=== PATIENT | female | born 1995 | race Caucasian/White ===

== ENCOUNTER → 2018-06-15 | Day surgery (SDC) | payer BC ==
[~2018-06-15] MED LIST: DEXILANT30 MG; DONNATAL/LIDOCAINE/MAALOX 30 ML SUSP PO ONE; FENTANYL CITRATE/PF 100MCG/2 ML INJ ONE; LIDOCAINE HCL 2% LOCAL INJ 5 ML SDV VIAL INJ ONE; MIDAZOLAM HCL 2 MG/2 ML VIAL ONE; PROPOFOL IV EMULSION 10 MG/ML 50 ML VIAL ONE; VIENVA PO; ZYRTEC10 MG
[2018-06-15 17:15] VITALS: BP 108/66
--- NOTE | 2018-06-15 20:47 | Operative Report ---
DATE OF PROCEDURE: June 15, 2018 REFERRING PHYSICIAN: Dr. Katheryn Ontiveros from [facility]. PROCEDURE PERFORMED: Esophagogastroduodenoscopy with biopsies. INDICATIONS FOR EGD: Upper abdominal pain, nausea. MEDICATION: Patient was done under MAC. Please see anesthesiologist's note. PROCEDURE: With the patient in left lateral decubitus position, a flexible fiberoptic Olympus gastroscope was introduced into the esophagus under direct visualization without any difficulty. There was some patchy erythema noted in distal esophagus. The scope was then advanced with ease into the stomach, and mucosa overlying the antrum and the body revealed some patchy erythema and low-grade edema, and biopsies were obtained. Multiple minute ulcers up to 4 mm in size were noted in the antrum without active bleeding or stigmata of recent hemorrhage, and biopsies were obtained. The pylorus was of normal contour and shape and was intubated with ease, and the scope was advanced all the way to the 2nd portion of the duodenum. Biopsies were obtained from the proximal 2nd portion and the duodenal bulb to rule out sprue. The scope was then withdrawn back into the stomach and retroflexed, and the mucosa overlying the fundus and the cardia appeared to be within normal limits. The scope was then straightened out. It was subsequently withdrawn. Patient tolerated the procedure well. IMPRESSION 1. Distal esophagitis. 2. Gastritis, biopsied. Biopsies obtained. 3. Gastric ulcers, antrum, up to approximately 4 mm in size. Biopsies obtained and sent to stain for Helicobacter pylori. PLAN: Follow up histology. Initiate Protonix 40 mg 1 p.o. q.a.m. a.c. Job#: [id number] LPA cc:KATHERYN ONTIVEROS MD
--- OUTSIDE RECORDS SUMMARY | 2018-06-18 09:22 | XMS REPORT | Continuity of Care Document ---
Author Author [facility] Interface Address Unknown Phone Unavailable Problems Problem Status Onset Date Classification Date Reported Comments Source Acute maxillary sinusitis 05/29/2018 Diagnosis 05/29/2018 [facility] Candidiasis of mouth 04/26/2018 Diagnosis 04/26/2018 [facility] Fever 04/14/2018 Diagnosis 04/26/2018 [facility] Mild dehydration 04/14/2018 Diagnosis 04/26/2018 [facility] On examination - pulse rate tachycardia 04/14/2018 Diagnosis 04/26/2018 [facility] Neck pain 04/14/2018 Diagnosis 04/26/2018 [facility] Streptococcal sore throat 04/14/2018 Diagnosis 04/26/2018 [facility] Influenza-like illness 04/14/2018 Diagnosis 04/26/2018 [facility] Body mass index 25-29 - overweight 02/12/2018 Diagnosis 02/12/2018 [facility] On examination - fluid -middle ear 02/12/2018 Diagnosis 02/12/2018 [facility] Viral sinusitis 02/12/2018 Diagnosis 02/12/2018 [facility] Acute sinusitis 11/16/2017 Diagnosis 11/16/2017 [facility] Eustachian tube disorder 02/16/2017 Diagnosis 02/16/2017 [facility] Acute pharyngitis 02/16/2017 Diagnosis 02/16/2017 [facility] Generalized aches and pains 02/16/2017 Diagnosis 02/16/2017 [facility] Urinary tract infectious disease 06/07/2016 Diagnosis 06/07/2016 [facility] Urinary Tract Infectious Disease Problem 11/16/2017 [facility] Medications Medication Details Route Status Patient Instructions Ordering Provider Order Date Source Azelastine hydrochloride 0.137 MG/ACTUAT Metered Dose Nasal [place] azelastine 137 mcg (0.1 %) nasal spray aerosol [place] 2 sprays twice a day by intranasal route as directed for 5 days. Active [facility] Prednisone 20 MG Oral Tablet prednisone 20 mg tablet Take 1 tablet every day by oral route with meals for 5 days. Active [facility] Vienva 0.1 mg-20 mcg tablet Vienva 0.1 mg-20 mcg tablet Active [facility] Azithromycin 250 MG Oral Tablet Zithromax Z-Urbano 250 mg tablet TAKE 2 TABLETS (500 MG) BY ORAL ROUTE ONCE DAILY FOR 1 DAY THEN 1 TABLET (250 MG) BY ORAL ROUTE ONCE DAILY FOR 4 DAYS Active [facility] Amoxicillin 875 MG Oral Tablet amoxicillin 875 mg tablet Take 1 tablet every 12 hours by oral route for 10 days. Active [facility] Cefuroxime 250 MG Oral Tablet cefuroxime axetil 250 mg tablet Active [facility] NITROFURANTOIN, MACROCRYSTALS 25 MG / Nitrofurantoin, Monohydrate 75 MG Oral Capsule [Macrobid] Macrobid 100 mg capsule Take 1 capsule every 12 hours by oral route for 7 days. Active [facility] Orsythia 0.1 mg-20 mcg tablet Orsythia 0.1 mg-20 mcg tablet Active [facility] Phenazopyridine hydrochloride 200 MG Oral Tablet phenazopyridine 200 mg tablet Take 1 tablet 3 times a day by oral route as needed. Active [facility] Sulfamethoxazole 800 MG / Trimethoprim 160 MG Oral Tablet sulfamethoxazole 800 mg-trimethoprim 160 mg tablet Active [facility] doxycycline hyclate 100 MG Oral Tablet doxycycline hyclate 100 mg tablet Take 1 tablet twice a day by oral route after meals for 7 days. Active [facility] Amoxicillin 875 MG / Clavulanate 125 MG Oral Tablet amoxicillin 875 mg-potassium clavulanate 125 mg tablet Take 1 tablet every 12 hours by oral route for 5 days. Active [facility] Fluticasone propionate 0.05 MG/ACTUAT Metered Dose Nasal [place] fluticasone 50 mcg/actuation nasal spray,suspension [place] 1 spray every day by intranasal route. Active [facility] Nystatin 499210 UNT/ML Oral Suspension nystatin 100,000 unit/mL oral suspension Gargles and spit 5ml four times a day x 7days. Active [facility] Medrol (Urbano) 4 mg tablets in a dose pack Medrol ([place]) 4 mg tablets in a dose pack Take as directed on package Active [facility] Allergies, Adverse Reactions, Alerts Substance Category Reaction Severity Reaction type Status Date Reported Comments Source Immunizations Immunization Date Given Site Status Last Updated Comments Source Tdap 11/24/2013 completed [facility] Results Order Name Results Value Reference Range Date Interpretation Comments Source Influenza A negative 05/29/2018 [facility] Influenza B negative 05/29/2018 [facility] RESULT negative 04/26/2018 [facility] RESULT positive 04/26/2018 [facility] SWAB LOCATION Left and Right tonsillar pillars 04/26/2018 [facility] Influenza A negative 04/14/2018 [facility] Influenza B negative 04/14/2018 [facility] RESULT negative 04/14/2018 [facility] RESULT positive 04/14/2018 [facility] SWAB LOCATION Left and Right tonsillar pillars 04/14/2018 [facility] Influenza A negative 02/12/2018 [facility] Influenza B negative 02/12/2018 [facility] RESULT negative 11/16/2017 [facility] SWAB LOCATION Left and Right tonsillar pillars 11/16/2017 [facility] Influenza A negative 02/16/2017 [facility] Influenza B negative 02/16/2017 [facility] RESULT negative 02/16/2017 [facility] SWAB LOCATION Left and Right tonsillar pillars 02/16/2017 [facility] Urinalysis macro (dipstick) panel - Urine COLOR : Yellow 06/07/2016 [facility] Urinalysis macro (dipstick) panel - Urine CLARITY : Cloudy 06/07/2016 [facility] Urinalysis macro (dipstick) panel - Urine LEUKOCYTES : Trace 06/07/2016 [facility] Urinalysis macro (dipstick) panel - Urine NITRITES : Negative 06/07/2016 [facility] Urinalysis macro (dipstick) panel - Urine UROBILINOGEN : Normal 06/07/2016 [facility] Urinalysis macro (dipstick) panel - Urine PROTEIN : Negative 06/07/2016 [facility] Urinalysis macro (dipstick) panel - Urine pH : 5.0 06/07/2016 [facility] Urinalysis macro (dipstick) panel - Urine BLOOD : Negative 06/07/2016 [facility] Urinalysis macro (dipstick) panel - Urine SPECIFIC GRAVITY : 1.010 06/07/2016 [facility] Urinalysis macro (dipstick) panel - Urine KETONES : Negative 06/07/2016 [facility] Urinalysis macro (dipstick) panel - Urine BILIRUBIN : Negative 06/07/2016 [facility] Urinalysis macro (dipstick) panel - Urine GLUCOSE Negative 06/07/2016 [facility] Vital Signs Vital Sign Value Date Comments Source Diastolic (mm Hg) 76 05/29/2018 [facility] Height 65 05/29/2018 [facility] Systolic (mm Hg) 112 05/29/2018 [facility] Weight 146 05/29/2018 [facility] Diastolic (mm Hg) 74 04/26/2018 [facility] Height 65 04/26/2018 [facility] Systolic (mm Hg) 112 04/26/2018 [facility] Weight 145 04/26/2018 [facility] Diastolic (mm Hg) 84 04/14/2018 [facility] Height 65 04/14/2018 [facility] Systolic (mm Hg) 122 04/14/2018 [facility] Weight 145 04/14/2018 [facility] Diastolic (mm Hg) 72 02/12/2018 [facility] Height 65 02/12/2018 [facility] Systolic (mm Hg) 114 02/12/2018 [facility] Weight 150 02/12/2018 [facility] Diastolic (mm Hg) 60 11/16/2017 [facility] Height 65 11/16/2017 [facility] Systolic (mm Hg) 106 11/16/2017 [facility] Weight 143 11/16/2017 [facility] Diastolic (mm Hg) 70 02/16/2017 [facility] Height 65 02/16/2017 [facility] Systolic (mm Hg) 118 02/16/2017 [facility] Weight 134 02/16/2017 [facility] Diastolic (mm Hg) 62 06/07/2016 [facility] Height 65 06/07/2016 [facility] Systolic (mm Hg) 102 06/07/2016 [facility] Weight 129 06/07/2016 [facility] Encounters Location Location Details Encounter Type Encounter Number Reason For Visit Attending Provider ADM Date DC Date Status Source [place] - [facility] - [id number] Kelsey Carreon, CUSTOMER SERVICES SUPERVISOR: [address] [place] [address], Ph. [id number] Kelsey Carreon 06/07/2016 [facility] [place] [facility] - [id number] Brisa Lou, CUSTOMER SERVICES SUPERVISOR: [address] [address], Ph. [id number] Brisa Lou 02/16/2017 [facility] [place] [facility] - [id number] Leonor Rubin, CUSTOMER SERVICES SUPERVISOR-C: [address] [place] [address], Ph. [id number] Leonor Rubin 11/16/2017 [facility] [place] [facility] - [id number] Brisa Lou, CUSTOMER SERVICES SUPERVISOR: [address] [address], Ph. [id number] Brisa Lou 02/12/2018 [facility] [place] [facility] - [id number] Marielle Granger, MOTORCYCLE REPAIRER-C: [facility] [facility] [address], Ph. [id number] Marielle Granger 04/14/2018 [facility] [place] [facility] - [id number] Marielle Granger, MOTORCYCLE REPAIRER-C: [address] [address], Ph. [id number] Marielle Granger 04/14/2018 [facility] [place] [facility] - [id number] Brisa Lou, CUSTOMER SERVICES SUPERVISOR: [address] [place] [address] [place] [address], Ph. [id number] Brisa Lou 04/26/2018 [facility] [place] [facility] - [id number] Brisa Lou, CUSTOMER SERVICES SUPERVISOR: [address] [address], Ph. [id number] Brisa Lou 05/29/2018 [facility] Procedures Procedure Code Date Perfomer Comments Source
--- OUTSIDE RECORDS SUMMARY | 2018-06-18 09:22 | XMS REPORT | Encounter Summary ---
Author Organization Unknown Address [address] [place] [address] Phone [phone] Reason for Visit Medical Complaint Instructions 1. Acute sinusitis sinusitis: care instructions fluticasone 50 mcg/actuation nasal spray,suspension amoxicillin 875 mg-potassium clavulanate 125 mg tablet rapid strep group A, throat Discussion Note: None recorded. Plan of Care Patient Instructions OTC flonase and allergy medication. Antibiotic medicine as directed. Drink plenty of water. Follow up with gas meter prover or PCP if symptoms worsen or do not improve in 3-4 days. Reminders Provider Appointments None recorded. Lab Rapid Strep Group a, Throat 11/16/2017 [facility] Referral None recorded. Procedures None recorded. Surgeries None recorded. Imaging None recorded. Medications Name Start Date amoxicillin 875 mg-potassium clavulanate 125 mg tablet Take 1 tablet every 12 hours by oral route for 5 days. fluticasone 50 mcg/actuation nasal spray,suspension [place] 1 spray every day by intranasal route. Vienva 0.1 mg-20 mcg tablet Medications Administered None recorded. Vitals Height Weight BMI Blood Pressure 5 ft 5 in 143 lbs 23.8 kg/m2 106/60 mm[Hg] Lab Results Date Name Specimen Result Interpretation Description Value Range Status Address Rapid Strep Group a, Throat Result negative [facility]: [address] [place] [address] Swab Location Left and Right tonsillar pillars [facility]: [address] [place] [address] Allergies Code Code System Name Reaction Severity Status Onset NKDA Problems Name Status Onset Date Source Urinary Tract Infectious Disease Active Encounter Procedures None recorded. Vaccine List Vaccine Type Tdap 11/24/2013 Social History Smoking Status Never Smoker Past Encounters 11/16/2017 Acute Sinusitis LARISA MaP-C: [address] [facility] , [place] [address], Ph. History of Present Illness [id number]-Ajlgfxf Reported By: Patient HPI: Location: head/sinuses, throat. Quality: sore throat, nasal/sinus congestion, dry cough. Duration: 2days. Severity: moderate. Onset/Timing: gradual. Context: no foreign travel, non-smoker, sick contact, allergies. Modifying factors: OTC medication. Associated Symptoms: no shortness of breath, no change in number of pillows needed to sleep at night, no vomiting, no diarrhea, no rash, no nausea, no fever, no muscle aches, no headache, sore throat Review of Systems Basic Reported By: Patient Constitutional: Constitutional: no fever Eyes: Eyes: no eye complaints Sqgv-Jrjc-Mvbml-Throat: Ears: ear pain. Nose: nose/sinus problems. Mouth/Throat: no bleeding gums, no mouth complaints, no teeth problems, sore throat Cardiovascular: Cardiovascular: no chest pain, no shortness of breath, no known heart murmur Respiratory: Respiratory: no wheezing, no shortness of breath, cough Gastrointestinal: Gastrointestinal: no abdominal pain, no vomiting / diarrhea Genitourinary: Genitourinary: no urinary complaints, no discharge Musculoskeletal: Musculoskeletal: no muscle aches, no muscle weakness, no arthralgias/joint pain, no back pain Skin: Skin: no abnormal / changing mole, no jaundice, no rashes Neurologic: Neurologic: no loss of consciousness, no weakness, no numbness, no seizures, no dizziness, no headaches Physical Exam Adult Basic, Adult Female Complete, 14-21 Yr Females Reported By: Patient Constitutional: General Appearance: well-nourished, well-developed. Level of Distress: NAD Psychiatric: Mental Status: normal affect, normal mood Eyes: Lids and Conjunctivae: non-injected, no discharge Ffn-Koxy-Lhuxg-Throat: Ears: no lesions on external ear, no outer ear tenderness, EACs clear, TMs clear. Nose: no lesions on external nose, nares patent, no sinus tenderness, nasal discharge, post nasal drip. Oropharynx: moist mucous membranes, no exudates, tonsils not enlarged, erythema Neck: Neck: supple, trachea midline, no masses, FROM. Lymph Nodes: posterior cervical LAD. Thyroid: no enlargement, non-tender, no nodules, no asymmetry Lungs: Respiratory effort: no tachypnea. Auscultation: clear to auscultation, no wheezing, no rales/crackles, no rhonchi, no retractions Cardiovascular: Heart Auscultation: no murmurs, no gallops, no rub. Apical impulse: not displaced. Rate and rhythm: regular Neurologic: Gait and Station: normal gait
--- OUTSIDE RECORDS SUMMARY | 2018-06-18 09:22 | XMS REPORT | Encounter Summary ---
Author Organization Unknown Address [address] [place] [address] Phone [phone] Reason for Visit Medical Complaint Instructions 1. Acute maxillary sinusitis Zithromax Z-Urbano 250 mg tablet prednisone 20 mg tablet azelastine 137 mcg (0.1 %) nasal spray aerosol 2. Eustachian tube disorder 3. Acute pharyngitis rapid strep group A, throat 4. Generalized aches and pains rapid flu (A+B) Discussion Note: None recorded. Patient educational handouts: No information available. Plan of Care Patient Instructions ok to take otc zyrtec along with prescribed meds. If not improve in 3days, call clinic back or see pcp. Reminders Provider Appointments None recorded. Lab Rapid Strep Group a, Throat 02/16/2017 [facility] Rapid Flu (A+B) 02/16/2017 [facility] Referral None recorded. Procedures None recorded. Surgeries None recorded. Imaging None recorded. Medications Name Start Date azelastine 137 mcg (0.1 %) nasal spray aerosol [place] 2 sprays twice a day by intranasal route as directed for 5 days. prednisone 20 mg tablet Take 1 tablet every day by oral route with meals for 5 days. Vienva 0.1 mg-20 mcg tablet Zithromax Z-Urbano 250 mg tablet TAKE 2 TABLETS (500 MG) BY ORAL ROUTE ONCE DAILY FOR 1 DAY THEN 1 TABLET (250 MG) BY ORAL ROUTE ONCE DAILY FOR 4 DAYS Medications Administered None recorded. Vitals Height Weight BMI Blood Pressure 5 ft 5 in 134 lbs 22.3 kg/m2 118/70 mm[Hg] Lab Results Date Name Specimen Result Interpretation Description Value Range Status Address Rapid Flu (A+B) Influenza a negative [facility]: [address] [place] [address] Influenza B negative [facility]: [address] [place] [address] Rapid Strep Group a, Throat Result negative [facility]: [address] [place] [address] Swab Location Left and Right tonsillar pillars [facility]: [address] [place] [address] Allergies Code Code System Name Reaction Severity Status Onset NKDA Problems Name Status Onset Date Source Urinary Tract Infectious Disease Active Encounter Procedures None recorded. Vaccine List Vaccine Type Tdap 11/24/2013 Social History Smoking Status Never Smoker Past Encounters 02/16/2017 Acute Maxillary Sinusitis; Eustachian Tube Disorder; Acute Pharyngitis; Generalized Aches and Pains Brisa Lou, SYSTEM SUPPORT SPECIALIST: [address] [place] [address], Ph. History of Present Illness Throat-Oral Complaint Reported By: Patient HPI: Location: throat. Quality: sore throat, congested. Severity: severe. Duration: 2 days. Onset/Timing: sudden. Context: no sick contacts, no foreign travel, non-smoker. Modifying factors: OTC medication. Associated Symptoms: no fever, no headache, no body aches, no sputum production, no shortness of breath, no wheezing, no change in number of pillows needed to sleep at night, no sweats, no significant weight gain, no significant weight loss, no morning cough, no vomiting, no diarrhea, no rash, no nausea, sore throat Review of Systems Basic Reported By: Patient Constitutional: Constitutional: no fever Eyes: Eyes: no eye complaints Uoqa-Pfdy-Iknvf-Throat: Ears: no ear complaints. Nose: nose/sinus problems. Mouth/Throat: no bleeding gums, no mouth complaints, no teeth problems, sore throat Cardiovascular: Cardiovascular: no chest pain, no shortness of breath, no known heart murmur Respiratory: Respiratory: no cough, no wheezing, no shortness of breath Gastrointestinal: Gastrointestinal: no abdominal pain, no vomiting / diarrhea Genitourinary: Genitourinary: no urinary complaints, no discharge Musculoskeletal: Musculoskeletal: no muscle weakness, no arthralgias/joint pain, no back pain, muscle aches Skin: Skin: no abnormal / changing mole, no jaundice, no rashes Neurologic: Neurologic: no loss of consciousness, no weakness, no numbness, no seizures, no dizziness, no headaches Physical Exam Adult Basic, 14-21 Yr Male, Adult Female Complete, 14-21 Yr Females Reported By: Patient Constitutional: General Appearance: well-nourished, well-developed. Level of Distress: NAD Psychiatric: Mental Status: active and alert, normal affect, normal mood. Orientation: to time, to place, to person Eyes: Lids and Conjunctivae: non-injected, no discharge. Pupils: equal size, round, reactive to light. Sclerae: non-icteric Yex-Hwtq-Bmbeb-Throat: Ears: no lesions on external ear, no outer ear tenderness, EACs clear, TMs clear, middle ear fluid. Nose: no lesions on external nose, nares patent, no septal deviation, nasal passages clear, sinus tenderness, nasal discharge--purulent, post nasal drip. Lips, Teeth, and Gums: no mouth or lip ulcers, no bleeding gums, normal dentition. Oropharynx: moist mucous membranes, no exudates, tonsils not enlarged, erythema Neck: Lymph Nodes: cervical lympadenopathy. Thyroid: no enlargement, non-tender, no nodules, no asymmetry Lungs: Respiratory effort: no tachypnea. Auscultation: clear to auscultation, no wheezing, no rales/crackles, no rhonchi, no retractions Cardiovascular: Heart Auscultation: no murmurs, no gallops, no rub. Apical impulse: not displaced. Rate and rhythm: regular
--- OUTSIDE RECORDS SUMMARY | 2018-06-18 09:22 | XMS REPORT | Encounter Summary ---
Author Organization Unknown Address [address] [place] [id number] Phone [phone] Reason for Visit Medical Complaint Instructions 1. Candidiasis of mouth nystatin 100,000 unit/mL oral suspension Discussion Note: None recorded. Patient educational handouts: No information available. Plan of Care Patient Instructions Ok to take otc probiotic. Mechanically removed white tongue with tongue line builder. Ok to take otc probiotic. If still not improve after 7 days, follow up with pcp or RTC. Reminders Provider Appointments None recorded. Lab None recorded. Referral None recorded. Procedures None recorded. Surgeries None recorded. Imaging None recorded. Medications Name Start Date amoxicillin 875 mg tablet Take 1 tablet every 12 hours by oral route for 10 days. nystatin 100,000 unit/mL oral suspension Gargles and spit 5ml four times a day x 7days. Vienva 0.1 mg-20 mcg tablet Medications Administered None recorded. Vitals Height Weight BMI Blood Pressure 5 ft 5 in 145 lbs 24.1 kg/m2 112/74 mm[Hg] Lab Results Date Name Specimen Result Interpretation Description Value Range Status Address 04/14/2018 Rapid Flu (A+B) Influenza a negative [facility]: [address] [place] [address] Influenza B negative [facility]: [address] [place] [address] Mononucleosis, Heterophile Ab, Blood Result negative [facility]: [address] [place] [address] Rapid Strep Group a, Throat Result positive [facility]: [address] [place] [address] Swab Location Left and Right tonsillar pillars [facility]: [address] [place] [address] Allergies Code Code System Name Reaction Severity Status Onset NKDA Problems No Known Problems Procedures None recorded. Vaccine List Vaccine Type Tdap 11/24/2013 Social History Smoking Status Never Smoker Past Encounters 04/26/2018 Candidiasis of Mouth Brisa Lou, BRUSHER HAND: [address] [facility] [place] [address], Ph. 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 History of Present Illness Throat-Oral Complaint Reported By: Patient HPI: Location: throat; tongue. Quality: ; sores. Severity: moderate. Duration: 5 days. Onset/Timing: sudden. Context: no sick contacts, no foreign travel, non- smoker. Modifying factors: OTC medication. Associated Symptoms: no fever, no headache, no body aches, no sputum production, no shortness of breath, no wheezing, no change in number of pillows needed to sleep at night, no sweats, no significant weight gain, no significant weight loss, no morning cough, no sore throat, no vomiting, no diarrhea, no rash, no nausea Review of Systems Basic Reported By: Patient Constitutional: Constitutional: no fever Eyes: Eyes: no eye complaints Weby-Fxfo-Arxed-Throat: Ears: no ear complaints. Nose: no nose/sinus problems. Mouth/Throat: no sore throat, no bleeding gums, no mouth complaints, no teeth problems, mouth ulcer Cardiovascular: Cardiovascular: no chest pain, no shortness [...] headaches Physical Exam Adult Basic, Adult Female Complete Reported By: Patient Constitutional: General Appearance: healthy-appearing, well-nourished, well-developed. Level of Distress: NAD. Ambulation: ambulating normally Psychiatric: Mental Status: active and alert. Orientation: to time, to place, to person Eyes: Lids and Conjunctivae: non-injected, no discharge, no pallor. Pupils: PERRLA. Corneas: grossly intact. EOM: EOMI. Lens: clear. Sclerae: non-icteric. Vision: acuity grossly intact Ggx-Zutv-Nflxr-Throat: Ears: no lesions on external ear, no outer ear tenderness, EACs clear, TMs clear. Hearing: no hearing loss. Nose: no lesions on external nose, nares patent, no septal deviation, nasal passages clear, no sinus tenderness, no nasal discharge; rhinitis. Lips, Teeth, and Gums: no bleeding gums, normal dentition, mouth ulcers; white thick coated tongue. Oropharynx: moist mucous membranes, no erythema, no exudates, tonsils not enlarged Neck: Neck: supple, trachea midline, no masses, FROM. Lymph Nodes: no cervical LAD, no supraclavicular LAD. Thyroid: no enlargement, non-tender, no nodules Lungs: Respiratory effort: no dyspnea, no tachypnea, no use of accessory muscles, no intercostal retractions. Auscultation: breath sounds normal Cardiovascular: Heart Auscultation: RRR, no murmurs. Neck vessels: no carotid bruits
--- OUTSIDE RECORDS SUMMARY | 2018-06-18 09:22 | XMS REPORT | Encounter Summary ---
Author Organization Unknown Address [address] [place] [id number] Phone [phone] Reason for Visit Medical Complaint Instructions 1. Viral sinusitis rapid flu (A+B) Medrol (Urbano) 4 mg tablets in a dose pack 2. On examination - fluid -middle ear 3. Body mass index 25-29 - overweight A healthy lifestyle: care instructions Discussion Note: None recorded. Plan of Care Patient Instructions Ok to use flonase 2 sprays each nostril along with prescribed med. Increase fluid intake. Vitamin C. If not improve in 3days and with purulent cough/fever, call clinic back or see pcp. Reminders Provider Appointments None recorded. Lab Rapid Flu (A+B) 02/12/2018 [facility] Referral None recorded. Procedures None recorded. Surgeries None recorded. Imaging None recorded. Medications Name Start Date Medrol (Urbano) 4 mg tablets in a dose pack Take as directed on package Vienva 0.1 mg-20 mcg tablet Medications Administered None recorded. Vitals Height Weight BMI Blood Pressure 5 ft 5 in 150 lbs 25 kg/m2 114/72 mm[Hg] Lab Results Date Name Specimen Result Interpretation Description Value Range Status Address Rapid Flu (A+B) Influenza a negative [facility]: [address] [place] [address] Influenza B negative [facility]: [address] [place] [address] Allergies Code Code System Name Reaction Severity Status Onset NKDA Problems No Known Problems Procedures None recorded. 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 History of Present Illness Xtdbx-Mjfwbxqbhd-Mysgsyi Reported By: Patient HPI: Location: head/sinuses. Quality: productive cough, colored phlegm, nasal/sinus congestion. Duration: 3days. Severity: moderate. Onset/Timing: sudden. Context: no sick contacts, no foreign travel, non-smoker. Modifying factors: OTC medication. Associated Symptoms: no shortness of breath, no wheezing, no change in number of pillows needed to sleep at night, no sweats, no significant weight gain, no significant weight loss, no morning cough, no sore throat, no vomiting, no diarrhea, no rash, no nausea, no fever, yellow sputum, muscle aches, headache Review of Systems Basic Reported By: Patient Constitutional: Constitutional: no fever Eyes: Eyes: no eye complaints Mxyl-Dlfd-Rlvig-Throat: Ears: no ear complaints. Nose: nose/sinus problems. Mouth/Throat: no sore throat, no bleeding gums, no mouth complaints, no teeth problems Cardiovascular: Cardiovascular: no chest pain, no shortness [...] no numbness, no seizures, no dizziness, no headaches, headache Physical Exam Adult Basic, 14-21 Yr Male, Adult Female Complete Reported By: Patient Constitutional: General Appearance: well-nourished, well-developed, overweight. Level of Distress: NAD Psychiatric: Mental Status: active and alert, normal affect, normal mood. Orientation: to time, to place, to person Eyes: Lids and Conjunctivae: non-injected, no discharge. Pupils: equal size, round, reactive to light. Sclerae: non-icteric Uds-Tpaw-Xuman-Throat: Ears: no lesions on external ear, no outer ear tenderness, EACs clear, TMs clear, middle ear fluid. Nose: no lesions on external nose, nares patent, no septal deviation, nasal passages clear, sinus tenderness, nasal discharge--rhinorrhea, post nasal drip. Lips, Teeth, and Gums: no mouth or lip ulcers, no bleeding gums, normal dentition. Oropharynx: moist mucous membranes, no erythema, no exudates, tonsils not enlarged Neck: Neck: supple, trachea midline, no masses, FROM. Lymph Nodes: no cervical LAD, no supraclavicular LAD. Thyroid: no enlargement, non-tender, no nodules, no asymmetry Lungs: Respiratory effort: no tachypnea. Auscultation: clear to auscultation, no wheezing, no rales/crackles, no rhonchi, no retractions Cardiovascular: Heart Auscultation: no murmurs, no gallops, no rub. Apical impulse: not displaced. Rate and rhythm: regular
--- OUTSIDE RECORDS SUMMARY | 2018-06-18 09:22 | XMS REPORT | Clinical Summary ---
Author Author [facility] Address Unknown Phone Unavailable Care Team Providers Care Change Of Address Clerk Name Role Phone Katheryn Freeman PCP Unavailable Allergies No Known Allergies Medications End Date Status Medication Sig Dispensed Refills Start Date Active levonorgestrel-ethinyl Take 1 tablet 0 estradiol by mouth (AVIANE,ALESSE,LESSINA) daily. 0.1-20 mg-mcg per tablet Active famotidine (PEPCID) 20 MG Take 1 tablet 30 tablet 0 tablet (20 mg total) 9 by mouth 2 (two) times daily. 06/07/2018 Discontinued traMADol (ULTRAM) 50 mg Take 1 tablet 10 tablet 0 tablet (50 mg total) 8 by mouth every 6 (six) hours as needed for up to 10 doses. Max Daily Amount: 200 mg Active Problems Not on file Encounters Care Team Description Date Type Specialty Rey Wray MD RUQ abdominal pain (Primary Dx); Right flank pain 06/07/2018 Emergency Emergency Medicine 06/07/2018 Orders Only General Internal Medicine 06/07/2018 Travel Jesus Ramirez MD RLQ abdominal pain (Primary Dx); Constipation, unspecified constipation type 07/09/2017 Emergency Emergency Medicine after 06/17/2017 Social History Date Tobacco Use Types Packs/Day Years Used Never Smoker Smokeless Tobacco: Never Used Alcohol Use Drinks/Week oz/Week Comments Yes occassionally Alcohol Habits Answer Date Recorded How often do you have a drink containing alcohol? Never 06/07/2018 How many drinks containing alcohol do you have on Not asked a typical day when you are drinking? How often do you have six or more drinks on one Not asked occasion? Sex Assigned at Date Recorded Not on file Industry Job Start Date Occupation Not on file Not on file Not on file Travel End Travel History Travel Start No recent travel history available. Last Filed Vital Signs Time Taken Vital Sign Reading 06/07/2018 8:31 PM [employer] Blood Pressure 136/64 06/07/2018 8:31 PM [employer] Pulse 87 06/07/2018 3:39 PM [employer] Temperature 36.4 C (97.6 F) 06/07/2018 8:31 PM [employer] Respiratory Rate 16 06/07/2018 8:31 PM [employer] Oxygen Saturation 100% - Inhaled Oxygen - Concentration 06/07/2018 3:39 PM [employer] Weight 63.5 kg (140 lb) 06/07/2018 3:39 PM [employer] Height 165.1 cm (5' 5") 06/07/2018 3:39 PM [employer] Body Mass Index 23.3 Plan of Treatment Not on file Procedures Comments Procedure Name Priority Date/Time Associated Diagnosis CT ABDOMEN/PELVIS STAT 06/07/2018 WITH/WITHOUT IV CONTRAST 9:37 PM [employer] POCT , URINE STAT 06/07/2018 8:33 PM [employer] ECG 12-LEAD Routine 06/07/2018 4:13 PM [employer] Procedure Note - Interface, External Ris In - 06/07/2018 7:53 PM [employer] Ventricula r Rate 83 BPM Atrial Rate 83 BPM P-R Interval 148 ms QRS Duration 82 ms Q-T Interval 374 ms QTC Calculatio n(Bazett) 439 ms P [place] 46 degrees R [place] 73 degrees T [place] 16 degrees Normal sinus rhythm RSR' or QR pattern in V1 suggests right ventricula r conduction delay T wave abnormalit y, consider inferior ischemia Abnormal ECG No previous ECGs available ECG 12-LEAD STAT 06/07/2018 4:13 PM [employer] URINALYSIS W/ MICROSCOPIC STAT 06/07/2018 4:12 PM [employer] CBC W/PLT COUNT & AUTO STAT 06/07/2018 DIFFERENTIAL 4:11 PM [employer] CBC W/PLT COUNT & AUTO STAT 06/07/2018 DIFFERENTIAL 4:11 PM [employer] LIPASE STAT 06/07/2018 4:11 PM [employer] AMYLASE STAT 06/07/2018 4:11 PM [employer] HEPATIC FUNCTION PANEL STAT 06/07/2018 4:11 PM [employer] BASIC METABOLIC PANEL (7) STAT 06/07/2018 4:11 PM [employer] CT ABDOMEN/PELVIS WITH IV STAT 07/09/2017 CONTRAST 7:19 PM [employer] SCREEN, URINE STAT 07/09/2017 5:27 PM [employer] URINALYSIS W/ MICROSCOPIC STAT 07/09/2017 5:27 PM [employer] CBC W/PLT COUNT & AUTO STAT 07/09/2017 DIFFERENTIAL 5:01 PM [employer] LIPASE STAT 07/09/2017 5:01 PM [employer] BILIRUBIN, ADULT TOTAL STAT 07/09/2017 5:01 PM [employer] AST (SGOT) STAT 07/09/2017 5:01 PM [employer] ALT (SGPT) STAT 07/09/2017 5:01 PM [employer] CBC W/PLT COUNT & AUTO STAT 07/09/2017 DIFFERENTIAL 5:01 PM [employer] BASIC METABOLIC PANEL (7) STAT 07/09/2017 5:01 PM [employer] after 06/17/2017 Results * CT abdomen/pelvis without & with IV contrast (06/07/2018 9:37 PM [employer]) Narrative [facility]formed At [facility] of the abdomen and pelvis History: Pain, stone disease suspected Comparison: CT the abdomen and pelvis performed 07/09/2017. Technique: Multidetector CT scanning of the abdomen and pelvis was performed from the level of the lung bases to the inferior pubic ramus, without and with intravenous administration of non-ionic contrast.Scanning during precontrast, early and delayed phases was performed. DOSE REDUCTION: The examination was performed according to departmental dose-optimization program which includes automated exposure control, adjustment of the mA and/or kV according to patient size and/or use of iterative reconstruction technique. Discussion: The lung bases are clear. No focal hepatic lesions are identified. The gallbladder is present and nondistended. There are no radiopaque gallstones. The spleen is within normal limits. Bilateral adrenal glands are unremarkable. The pancreas is homogeneous in attenuation. There is no pancreatic ductal dilatation or peripancreatic inflammatory stranding. The kidneys are normal in size and enhance symmetrically. No evidence of kidney stones. There is no hydroureteronephrosis bilaterally. No renal parenchymal lesions are identified. The stomach, small, and large bowel are nondistended. There is no evidence of obstruction. There is no evidence of appendicitis. No bowel wall thickening is appreciated. There is no free intraperitoneal air or ascites. The uterus and bilateral adnexa are within normal limits. The abdominal aorta is of normal course and caliber. There are no acute osseous abnormalities. IMPRESSION: No CT evidence of acute abdominal or pelvic pathology. Signed: Todd Duarte MD Report Verified Date/Time:06/07/2018 21:57:09 Reading Location: [facility] [id number] Consult Reading Room Procedure Note Interface, External Ris In - 06/07/2018 9:59 PM [employer] FINAL REPORT CT of the abdomen and pelvis History: Pain, stone disease suspected Comparison: CT the abdomen and pelvis performed 07/09/2017. Technique: Multidetector CT scanning of the abdomen and pelvis was performed from the level of the lung bases to the inferior pubic ramus, without and with intravenous administration of non-ionic contrast. Scanning during precontrast, early and delayed phases was performed. DOSE REDUCTION: The examination was performed according to departmental dose-optimization program which includes automated exposure control, adjustment of the mA and/or kV according to patient size and/or use of iterative reconstruction technique. Discussion: The lung bases are clear. No focal hepatic lesions are identified. The gallbladder is present and nondistended. There are no radiopaque gallstones. The spleen is within normal limits. Bilateral adrenal glands are unremarkable. The pancreas is homogeneous in attenuation. There is no pancreatic ductal dilatation or peripancreatic inflammatory stranding. The kidneys are normal in size and enhance symmetrically. No evidence of kidney stones. There is no hydroureteronephrosis bilaterally. No renal parenchymal lesions are identified. The stomach, small, and large bowel are nondistended. There is no evidence of obstruction. There is no evidence of appendicitis. No bowel wall thickening is appreciated. There is no free intraperitoneal air or ascites. The uterus and bilateral adnexa are within normal limits. The abdominal aorta is of normal course and caliber. There are no acute osseous abnormalities. IMPRESSION: No CT evidence of acute abdominal or pelvic pathology. Signed: Todd Duarte MD Report Verified Date/Time: 06/07/2018 21:57:09 Reading Location: [facility] [id number] Consult Reading Room Performing Organization Address City/[facility] Phone Number [employer] RIS * POCT , urine (06/07/2018 8:33 PM [employer]) Test Urine, POC Negative Control line present?, Yes POC Background clear?, POC Yes UPT Cassette Lot #, POC [id number] UPT Cassette Expiration 2019-09-25 Date, POC Specimen Urine * ECG 12 lead (06/07/2018 4:13 PM [employer]) Narrative Performed At Ventricular Rate 83 BPM GE MUSE Atrial Rate 83 BPM P-R Interval 148 ms QRS Duration 82 ms Q-T Interval 374 ms QTC Calculation(Bazett) 439 ms P [place] 46 degrees R [place] 73 degrees T [place] 16 degrees Normal sinus rhythm RSR' or QR pattern in V1 suggests right ventricular conduction delay T wave abnormality, consider inferior ischemia Abnormal ECG No previous ECGs available Confirmed by MD Garcia Roberto ([id number]) on 06/07/2018 11:09:51 PM Procedure Note Interface, External Ris In - 06/07/2018 11:10 PM [employer] Ventricular Rate 83 BPM Atrial Rate 83 BPM P-R Interval 148 ms QRS Duration 82 ms Q-T Interval 374 ms QTC Calculation(Bazett) 439 ms P [place] 46 degrees R [place] 73 degrees T [place] 16 degrees Normal sinus rhythm RSR' or QR pattern in V1 suggests right ventricular conduction delay T wave abnormality, consider inferior ischemia Abnormal ECG No previous ECGs available Confirmed by MD Garcia Roberto ([id number]) on 06/07/2018 11:09:51 PM Performing Organization Address City/[facility] Phone Number [employer] MUSE * Urinalysis w/ Microscopic (06/07/2018 4:12 PM [employer]) Only the most recent of 2 results within the time period is included. Color, UA Light Yellow [facility] Clarity, UA Clear [facility] Specific [place], UA 1.005 1.001 - 1.035 [facility] pH, UA 6.0 5.0 - 8.0 [facility] Protein, UA Negative Negative [facility] Glucose, UA Negative Negative [facility] Ketones, UA 60 mg/dL (A) Negative [facility] Bilirubin, UA Negative Negative [facility] Blood, UA Negative Negative [facility] Nitrite, UA Negative Negative [facility] Leukocytes, UA Negative Negative [facility] Urobilinogen, UA 0.2 0.2 - 1.0 mg/dL [facility] RBC, UA <1 /HPF [facility] WBC, UA 1 /HPF [facility] Bacteria, UA Rare [facility] Squam Epithel, UA 1 /HPF [facility] Specimen Source Urine, Voided [facility] Specimen Urine - Urine, Voided Performing Organization Address City/State/Zipcode Phone Number [facility] [address] [place] [address] [facility] * CBC with platelet count + automated diff (06/07/2018 4:11 PM [employer]) Only the most recent of 2 results within the time period is included. WBC 7.7 3.5 - 10.5 K/L [facility] RBC 4.48 3.93 - 5.22 M/L [facility] Hemoglobin 12.7 11.2 - 15.7 GM/DL [facility] Hematocrit 38.6 34.1 - 44.9 % [facility] MCV 86.2 79.4 - 94.8 fL [facility] MCH 28.3 25.6 - 32.2 pg [facility] MCHC 32.9 32.2 - 35.5 GM/DL [facility] RDW 11.4 (L) 11.7 - 14.4 % [facility] Platelets 265 150 - 450 K/CU MM [facility] MPV 9.7 9.4 - 12.3 fL [facility] nRBC 0 0 - 0 /100 WBC [facility] % Neutros 63 % [facility] % Lymphs 31 % [facility] % Monos 3 % [facility] % Eos 2 % [facility] % Baso 1 % [facility] # Neutros 4.86 1.56 - 6.13 K/L [facility] # Lymphs 2.38 1.18 - 3.74 K/L [facility] # Monos 0.25 0.24 - 0.36 K/L [facility] # Eos 0.12 0.04 - 0.36 K/L [facility] # Baso 0.04 0.01 - 0.08 K/L [facility] Immature 0 0 - 1 % [facility] Granulocytes-Relative [facility] Specimen Blood - Line, Venous Performing Organization Address City/State/Zipcode Phone Number [facility] [address] [place] [address] MED[facility]ENTER * Lipase (06/07/2018 4:11 PM [employer]) Only the most recent of 2 results within the time period is included. Lipase 13 8 - 78 U/L [facility] Specimen Blood - Line, Venous Performing Organization Address City/[facility] Phone Number [address] [address] [phone] [place] [address] * Amylase (06/07/2018 4:11 PM [employer]) Amylase 41 25 - 125 U/L [facility] Specimen Blood - Line, Venous Performing Organization Address City/[facility] Phone Number [place] [phone] * Hepatic function panel (06/07/2018 4:11 PM [employer]) Protein, Total 7.4 6.0 - 8.3 gm/dL [facility] Albumin 4.3 3.5 - 5.0 g/dL [facility] Total Bilirubin 0.8 0.2 - 1.2 mg/dL [facility] Bilirubin, Direct 0.3 0.1 - 0.5 mg/dL [facility] Alkaline Phosphatase 63 40 - 150 U/L [facility] AST 15 5 - 34 U/L [facility] ALT 15 6 - 55 U/L [facility] Specimen Blood - Line, Venous Performing Organization Address City/[facility] Phone Number [place] [phone] [place] [address] * Basic Metabolic Panel (06/07/2018 4:11 PM [employer]) Only the most recent of 2 results within the time period is included. Sodium 141 136 - 145 meq/L [facility] Potassium 3.6 3.5 - 5.1 meq/L [facility] Chloride 105 98 - 107 meq/L [facility] CO2 25 22 - 29 meq/L [facility] BUN 7 7 - 21 mg/dL [facility] Creatinine 0.79 0.57 - 1.25 mg/dL [facility] Glucose 78 70 - 105 mg/dL [facility] Calcium 9.6 8.4 - 10.2 mg/dL [facility] EGFR 90Comment: ESTIMATED GFR IS mL/min/1.73 sq m [facility] NOT ACCURATE CREATININE [facility] CLEARANCE IN PREDICTING GLOMERULAR FILTRATION RATE. ESTIMATED GFR IS NOT APPLICABLE FOR DIALYSIS PATIENTS. Specimen Blood - Line, Venous Performing Organization Address City/State/Zipcode Phone Number [facility] [address] [place] [address] [facility] * CT abdomen/pelvis with IV contrast (07/09/2017 7:19 PM [employer]) Narrative Performed At [facility] CT, ABDOMEN \\T\\ PELVIS, WITH IV CONTRAST INDICATION: Abdominal pain RLQ pain COMPARISON: None TECHNIQUE: Post contrast abdomen and pelvis CT.Coronal and sagittal reformatted images obtained. DOSE REDUCTION: Dose modulation, iterative reconstruction, and/or weight-based adjustment of the mA/kV was utilized to reduce the radiation dose to as low as reasonably achievable. FINDINGS: Lower thorax: Visible airspaces clear. No effusion. Liver: No parenchymal abnormality. Gallbladder and biliary tree: No ductal dilation or stones. Pancreas: No acute findings. Spleen: No acute findings Adrenal Glands: No acute findings. Kidneys and ureters: No hydronephrosis or nephrolithiasis. Bladder and reproductive organs: Unremarkable. Stomach and Duodenum: No significant findings. Small and large intestine: Normal calibers. Large stool burden. Appendix: Normal caliber, air-filled. Major vascular structures: Normal aortic caliber. Peritoneum and retroperitoneum: Trace simple fluid in the cul-de-sac likely cyclic in nature. Skeleton: No acute bony abnormality. Additional findings: None. IMPRESSION: No acute abnormality in the abdomen or pelvis to explain right lower quadrant pain. Specifically, normal appendix. Large fecal burden may reflect constipation. No renal or ureteric stone. Signed: JR Clemente, Cate LUA Report Verified Date/Time:07/09/2017 19:31:25 Reading Location: [address] Reading Room Procedure Note Interface, External Ris In - 07/09/2017 7:33 PM [employer] FINAL REPORT CT, ABDOMEN \\T\\ PELVIS, WITH IV CONTRAST INDICATION: Abdominal pain RLQ pain COMPARISON: None TECHNIQUE: Post contrast abdomen and pelvis CT. Coronal and sagittal reformatted images obtained. DOSE REDUCTION: Dose modulation, iterative reconstruction, and/or weight-based adjustment of the mA/kV was utilized to reduce the radiation dose to as low as reasonably achievable. FINDINGS: Lower thorax: Visible airspaces clear. No effusion. Liver: No parenchymal abnormality. Gallbladder and biliary tree: No ductal dilation or stones. Pancreas: No acute findings. Spleen: No acute findings Adrenal Glands: No acute findings. Kidneys and ureters: No hydronephrosis or nephrolithiasis. Bladder and reproductive organs: Unremarkable. Stomach and Duodenum: No significant findings. Small and large intestine: Normal calibers. Large stool burden. Appendix: Normal caliber, air-filled. Major vascular structures: Normal aortic caliber. Peritoneum and retroperitoneum: Trace simple fluid in the cul-de-sac likely cyclic in nature. Skeleton: No acute bony abnormality. Additional findings: None. IMPRESSION: No acute abnormality in the abdomen or pelvis to explain right lower quadrant pain. Specifically, normal appendix. Large fecal burden may reflect constipation. No renal or ureteric stone. Signed: JR Cornejo Robert MD Report Verified Date/Time: 07/09/2017 19:31:25 Reading Location: [address] Reading Room Performing Organization Address City/State/Zipcode Phone Number [facility] RIS * Screen, urine (07/09/2017 5:27 PM [employer]) Preg Test, Ur Negative [facility] Specimen Urine - Urine, Clean Catch Performing Organization Address [facility]/Zipcode Phone Number [facility] [address] [place] [address] MEDICAL [facility]ENTER * ALT (SGPT) (07/09/2017 5:01 PM [employer]) ALT 14 6 - 55 U/L [facility] Specimen Blood - Arm, Left Performing Organization Address City/[facility] Phone Number [facility] [address] [place] [address] [facility] * AST (SGOT) (07/09/2017 5:01 PM [employer]) AST 16 5 - 34 U/L [facility] Specimen Blood - Arm, Left Performing Organization Address City/[facility] Phone Number [facility] [address] [place] [address] [facility] * Bilirubin, adult total (07/09/2017 5:01 PM [employer]) Total Bilirubin 0.4 0.2 - 1.2 mg/dL [facility] Specimen Blood - Arm, Left Performing Organization Address [facility] Phone Number [facility] [address] [place] [address] [facility] after 06/17/2017 Insurance Payer Benefit Subscriber ID Type Phone Address Plan / Group [employer]UE [employer] BCBS PPO xxxxxxxxxxxx PPO [phone] [address] [place] [address] CHOICE
--- OUTSIDE RECORDS SUMMARY | 2018-06-18 09:22 | XMS REPORT ---
[facility] Address Unknown Phone Unavailable Care Team Providers Care [facility] Name Role Phone KATERINE CASTORENA Unavailable Unavailable Problems This patient has no known problems. Allergies, Adverse Reactions, Alerts This patient has no known allergies or adverse reactions. Medications This patient has no known medications. Results Test Description Test Time Test Comments Text Results Atomic Results Result Comments CT, ABDOMEN 2018-06-07 21:57:00 Reason for exam:->flank painReason for exam:->abdominal painIs the patient ?->NoWhat is the patient's sedation requirement?->No Sedation FINAL REPORT CT of the abdomen and [...] caliber. There are no acute osseous abnormalities. IMPRESSION:No CT evidence of acute abdominal or pelvic pathology. Signed: Todd Duarte MDReport Verified Date/Time: 06/07/2018 21:57:09 Reading Location: [facility] B1 [id number] Consult Reading Room ALYSIS W/ MICROSCOPIC 2018-06-07 18:09:00 COLOR (BEAKER) (test nefs=568) Light Yellow CLARITY (BEAKER) (test gcxk=510) Clear SPECIFIC GRAVITY UA (BEAKER) (test froc=767) 1.005 1.001-1.035 PH UA (BEAKER) (test zqhs=194) 6.0 5.0-8.0 PROTEIN UA (BEAKER) (test kbzo=871) Negative Negative GLUCOSE UA (BEAKER) (test akqt=887) Negative Negative KETONES UA (BEAKER) (test vejg=138) 60 mg/dL Negative BILIRUBIN UA (BEAKER) (test vepo=238) Negative Negative BLOOD UA (BEAKER) (test gpzh=814) Negative Negative NITRITE UA (BEAKER) (test jbyb=957) Negative Negative LEUKOCYTE ESTERASE UA (BEAKER) (test pmpa=545) Negative Negative UROBILINOGEN UA (BEAKER) (test fdij=398) 0.2 mg/dL 0.2-1.0 RBC UA (BEAKER) (test dzen=927) < /HPF WBC UA (BEAKER) (test jwap=610) 1 /HPF BACTERIA (BEAKER) (test uswx=124) Rare SQUAMOUS EPITHELIAL (BEAKER) (test zoam=054) 1 /HPF SOURCE(BEAKER) (test ewlw=4398) Urine, Voided [id number] 16:34:00* Test Item Value Reference Range Comments LIPASE (BEAKER) (test gkgl=298) 13 U/L 8-78 [id number] 16:34:00* Test Item Value Reference Range Comments AMYLASE (BEAKER) (test fqhp=270) 41 U/L 25-125 BASIC METABOLIC [id number] 16:34:00* Test Item Value Reference Range Comments SODIUM (BEAKER) (test wuzs=872) 141 meq/L 136-145 POTASSIUM (BEAKER) (test ztlp=202) 3.6 meq/L 3.5-5.1 CHLORIDE (BEAKER) (test cinf=738) 105 meq/L 98-107 CO2 (BEAKER) (test mysd=701) 25 meq/L 22-29 BLOOD UREA NITROGEN (BEAKER) (test kgau=509) 7 mg/dL 7-21 CREATININE (BEAKER) (test iewo=552) 0.79 mg/dL 0.57-1.25 GLUCOSE RANDOM (BEAKER) (test nrvz=646) 78 mg/dL 70-105 CALCIUM (BEAKER) (test szhy=012) 9.6 mg/dL 8.4-10.2 EGFR (BEAKER) (test fqdh=9365) 90 mL/min/1.73 sq m ESTIMATED GFR IS NOT ACCURATE CREATININE CLEARANCE IN PREDICTING GLOMERULAR FILTRATION RATE. ESTIMATED GFR IS NOT APPLICABLE FOR DIALYSIS PATIENTS. HEPATIC FUNCTION [id number] 16:34:00* Test Item Value Reference Range Comments TOTAL PROTEIN (BEAKER) (test pxjy=540) 7.4 gm/dL 6.0-8.3 ALBUMIN (BEAKER) (test hpkw=9398) 4.3 g/dL 3.5-5.0 BILIRUBIN TOTAL (BEAKER) (test pcju=985) 0.8 mg/dL 0.2-1.2 BILIRUBIN DIRECT (BEAKER) (test qetq=941) 0.3 mg/dL 0.1-0.5 ALKALINE PHOSPHATASE (BEAKER) (test pmzr=146) 63 U/L 40-150 AST (SGOT) (BEAKER) (test bism=662) 15 U/L 5-34 ALT (SGPT) (BEAKER) (test eufb=333) 15 U/L 6-55 CBC W/PLT COUNT & AUTO [id number] 16:21:00* Test Item Value Reference Range Comments WHITE BLOOD CELL COUNT (BEAKER) (test navv=054) 7.7 K/ L 3.5-10.5 RED BLOOD CELL COUNT (BEAKER) (test brbw=460) 4.48 M/ L 3.93-5.22 HEMOGLOBIN (BEAKER) (test sdmj=745) 12.7 GM/DL 11.2-15.7 HEMATOCRIT (BEAKER) (test odcx=986) 38.6 % 34.1-44.9 MEAN CORPUSCULAR VOLUME (BEAKER) (test ebvc=332) 86.2 fL 79.4-94.8 MEAN CORPUSCULAR HEMOGLOBIN (BEAKER) (test brmh=261) 28.3 pg 25.6-32.2 MEAN CORPUSCULAR HEMOGLOBIN CONC (BEAKER) (test kvhy=394) 32.9 GM/DL 32.2-35.5 RED CELL DISTRIBUTION WIDTH (BEAKER) (test eczl=922) 11.4 % 11.7-14.4 PLATELET COUNT (BEAKER) (test zfeo=383) 265 K/CU MM 150-450 MEAN PLATELET VOLUME (BEAKER) (test hgwn=076) 9.7 fL 9.4-12.3 NUCLEATED RED BLOOD CELLS (BEAKER) (test csir=364) 0 /100 WBC 0-0 NEUTROPHILS RELATIVE PERCENT (BEAKER) (test sker=080) 63 % LYMPHOCYTES RELATIVE PERCENT (BEAKER) (test note=092) 31 % MONOCYTES RELATIVE PERCENT (BEAKER) (test xujr=065) 3 % EOSINOPHILS RELATIVE PERCENT (BEAKER) (test snly=380) 2 % BASOPHILS RELATIVE PERCENT (BEAKER) (test kwlm=036) 1 % NEUTROPHILS ABSOLUTE COUNT (BEAKER) (test uqko=253) 4.86 K/ L 1.56-6.13 LYMPHOCYTES ABSOLUTE COUNT (BEAKER) (test anxy=398) 2.38 K/ L 1.18-3.74 MONOCYTES ABSOLUTE COUNT (BEAKER) (test zwvd=410) 0.25 K/ L 0.24-0.36 EOSINOPHILS ABSOLUTE COUNT (BEAKER) (test qjrz=612) 0.12 K/ L 0.04-0.36 BASOPHILS ABSOLUTE COUNT (BEAKER) (test syhb=511) 0.04 K/ L 0.01-0.08 IMMATURE GRANULOCYTES-RELATIVE PERCENT (BEAKER) (test nyia=4649) 0 % 0-1 CT, [id number] 19:31:00Reason for exam:->Abdominal painWhat is the patient's sedation requirement?->No SedationIs the patient ?->NoFINAL REPORT CT, ABDOMEN \T\ PELVIS, WITH IV CONTRAST IND ICATION: Abdominal painRLQ pain COMPARISON: None TECHNIQUE:Post contrast abdomen and pelvis CT. Coronal and sagittal reformatted images obtained. DOSE REDUCTI ON: Dose modulation, iterative reconstruction, and/or weight-based adjustment of the mA/kV was utilized to reduce the radiation dose to as low as reasonably ach ievable. FINDINGS: Lower thorax: Visible airspaces clear. No effusion. Liver: No parenchymal abnormality.Gallbladder and biliary tree: No ductal dilation or sto terri.Pancreas: No acute findings.Spleen: No acute findingsAdrenal Glands: No acut e findings.Kidneys and ureters: No hydronephrosis or nephrolithiasis.Bladder and reproductive organs: Unremarkable. Stomach and Duodenum: No significant finding s.Small and large intestine: Normal calibers. Large stool burden.Appendix: Noreen l caliber, air-filled. Major vascular structures: Normal aortic caliber.Peritone um and retroperitoneum: Trace simple fluid in the cul-de-sac likely cyclic in na ture. Skeleton: No acute bony abnormality.Additional findings: None. IMPRES FERN: No acute abnormality in the abdomen or pelvis to explain right lower quadr ant pain. Specifically, normal appendix. Large fecal burden may reflect constipa tion. No renal or ureteric stone. Signed: JR Clemente, Cate MOISEeport Veri fied Date/Time: 07/09/2017 19:31:25 Reading Location: [address] 07 :31 PM [id number] 18:05:00* Test Item Value Reference Range Comments LIPASE (BEAKER) (test kgjq=496) 17 U/L 8-78 ALT (SGPT)2017-07-09 18:05:00* Test Item Value Reference Range Comments ALT (SGPT) (BEAKER) (test tixc=157) 14 U/L 6-55 AST (SGOT)2017-07-09 18:05:00* Test Item Value Reference Range Comments AST (SGOT) (BEAKER) (test cjrc=023) 16 U/L 5-34 BILIRUBIN, ADULT [id number] 18:05:00* Test Item Value Reference Range Comments BILIRUBIN TOTAL (BEAKER) (test bghi=668) 0.4 mg/dL 0.2-1.2 BASIC METABOLIC [id number] 18:05:00* Test Item Value Reference Range Comments SODIUM (BEAKER) (test hzmy=708) 140 meq/L 136-145 POTASSIUM (BEAKER) (test azth=629) 3.9 meq/L 3.5-5.1 CHLORIDE (BEAKER) (test syjj=698) 105 meq/L 98-107 CO2 (BEAKER) (test zbth=149) 26 meq/L 22-29 BLOOD UREA NITROGEN (BEAKER) (test dong=711) 9 mg/dL 7-21 CREATININE (BEAKER) (test koiu=932) 0.77 mg/dL 0.57-1.25 GLUCOSE RANDOM (BEAKER) (test wzwm=096) 96 mg/dL 70-105 CALCIUM (BEAKER) (test qzeg=389) 9.7 mg/dL 8.4-10.2 EGFR (BEAKER) (test zvjv=1232) mL/min/1.73 sq m INSUFFICIENT CLINICAL DATA TO CALCULATE ESTIMATED GFR. URINALYSIS W/ [id number] 17:54:00* Test Item Value Reference Range Comments COLOR (BEAKER) (test oply=354) Light Yellow CLARITY (BEAKER) (test dssm=518) Clear SPECIFIC GRAVITY UA (BEAKER) (test kdpq=853) 1.004 1.001-1.035 PH UA (BEAKER) (test xwxg=902) 7.0 5.0-8.0 PROTEIN UA (BEAKER) (test vqqm=217) Negative Negative GLUCOSE UA (BEAKER) (test ryrx=628) Negative Negative KETONES UA (BEAKER) (test fwpa=711) Negative Negative BILIRUBIN UA (BEAKER) (test lsni=095) Negative Negative BLOOD UA (BEAKER) (test suge=760) Negative Negative NITRITE UA (BEAKER) (test gphn=593) Negative Negative LEUKOCYTE ESTERASE UA (BEAKER) (test kuso=909) Negative Negative UROBILINOGEN UA (BEAKER) (test vhrm=816) 0.2 mg/dL 0.2-1.0 RBC UA (BEAKER) (test yafw=045) 0 /HPF WBC UA (BEAKER) (test hdal=340) 0 /HPF SQUAMOUS EPITHELIAL (BEAKER) (test beji=962) 1 /HPF SOURCE(BEAKER) (test kqmy=9077) Urine, Clean Catch SCREEN, [id number] 17:51:00* Test Item Value Reference Range Comments TEST URINE (BEAKER) (test frmq=339) Negative CBC W/PLT COUNT & AUTO [id number] 17:24:00* Test Item Value Reference Range Comments WHITE BLOOD CELL COUNT (BEAKER) (test vqpc=016) 7.0 K/ L 3.5-10.5 RED BLOOD CELL COUNT (BEAKER) (test kdbd=887) 4.61 M/ L 3.93-5.22 HEMOGLOBIN (BEAKER) (test uwut=947) 13.3 GM/DL 11.2-15.7 HEMATOCRIT (BEAKER) (test amau=228) 40.3 % 34.1-44.9 MEAN CORPUSCULAR VOLUME (BEAKER) (test rbkg=193) 87.4 fL 79.4-94.8 MEAN CORPUSCULAR HEMOGLOBIN (BEAKER) (test zais=149) 28.9 pg 25.6-32.2 MEAN CORPUSCULAR HEMOGLOBIN CONC (BEAKER) (test rczy=223) 33.0 GM/DL 32.2-35.5 RED CELL DISTRIBUTION WIDTH (BEAKER) (test tlir=777) 11.6 % 11.7-14.4 PLATELET COUNT (BEAKER) (test mput=263) 275 K/CU MM 150-450 MEAN PLATELET VOLUME (BEAKER) (test awue=932) 10.6 fL 9.4-12.3 NUCLEATED RED BLOOD CELLS (BEAKER) (test ztrv=697) 0 /100 WBC 0-0 NEUTROPHILS RELATIVE PERCENT (BEAKER) (test zhwa=291) 58 % LYMPHOCYTES RELATIVE PERCENT (BEAKER) (test vsws=781) 34 % MONOCYTES RELATIVE PERCENT (BEAKER) (test tahk=317) 5 % EOSINOPHILS RELATIVE PERCENT (BEAKER) (test mgjy=111) 3 % BASOPHILS RELATIVE PERCENT (BEAKER) (test eewm=909) 0 % NEUTROPHILS ABSOLUTE COUNT (BEAKER) (test aguh=613) 4.07 K/ L 1.56-6.13 LYMPHOCYTES ABSOLUTE COUNT (BEAKER) (test ihbr=149) 2.34 K/ L 1.18-3.74 MONOCYTES ABSOLUTE COUNT (BEAKER) (test caar=084) 0.32 K/ L 0.24-0.36 EOSINOPHILS ABSOLUTE COUNT (BEAKER) (test qrcl=964) 0.20 K/ L 0.04-0.36 BASOPHILS ABSOLUTE COUNT (BEAKER) (test jiey=610) 0.02 K/ L 0.01-0.08 IMMATURE GRANULOCYTES-RELATIVE PERCENT (BEAKER) (test sdbx=0110) 0 % 0-1
--- OUTSIDE RECORDS SUMMARY | 2018-06-18 09:22 | XMS REPORT | Encounter Summary ---
Author Organization Unknown Address [address] [place] [address] Phone [phone] Reason for Visit Medical Complaint Instructions 1. Urinary tract infectious disease urinalysis, dipstick Macrobid 100 mg capsule culture, urine urinary tract infection in women: care instructions phenazopyridine 200 mg tablet Discussion Note I provided /reviewed [facility] handout Plan of Care Patient Instructions *Drink plenty of fluids and/or cranberry juice. *Avoid alcohol/ caffeine. *Wipe from front to back after voiding, and always void after intercourse. *Avoid soaking in bubble baths/ hot tubs/ swimming *Avoid any sexual activity until symptoms have completely resolved. *In the future when symptoms have resolved, may take AZO OTC before sexual activity to help prevent UTIs. *Take medication(s) as prescribed for the indicated length of time. If no improvement in 3 days, or if you develop new or worsening symptoms (such as high fever, nausea/vomiting, severe flank pain, or blood in your urine), follow up with a primary care provider or go to the nearest Emergency Room. Reminders Provider Appointments None recorded. Lab Urinalysis, Dipstick 06/07/2016 [facility] Culture, Urine 06/07/2016 [facility] Referral None recorded. Procedures None recorded. Surgeries None recorded. Imaging None recorded. Medications Name Start Date cefuroxime axetil 250 mg tablet Macrobid 100 mg capsule Take 1 capsule every 12 hours by oral route for 7 days. Orsythia 0.1 mg-20 mcg tablet phenazopyridine 200 mg tablet Take 1 tablet 3 times a day by oral route as needed. sulfamethoxazole 800 mg-trimethoprim 160 mg tablet Medications Administered None recorded. Vitals Height Weight BMI Blood Pressure 5 ft 5 in 129 lbs 21.5 102/62 Lab Results Date Name Result Description Value Range Status Urinalysis, Dipstick Color : Yellow Clarity : Cloudy Leukocytes : Trace Nitrites : Negative Urobilinogen : Normal Protein : Negative Ph : 5.0 Blood : Negative Specific Pixley : 1.010 Ketones : Negative Bilirubin : Negative Glucose Negative Allergies Name Reaction Severity Onset NKDA Problems Name Status Onset Date Source Urinary Tract Infectious Disease Active Encounter Procedures None recorded. Vaccine List None recorded. Social History Smoking Status Never Smoker Past Encounters 06/07/2016 Urinary Tract Infectious Disease Kelsey CarreonEDUARDO: [address] [place] [place] [address], Ph. History of Present Illness Mehtte-OAA-Kbdeowa Reported By: Patient HPI: Location: abdomen. Quality: burning. Severity: worsening. Onset/Timing: better. Context: not sexually active, no known exposure to STD, no prior history of STDs, history of urine cultures/antibiotic treatment. Associated Symptoms: no fever/chills, no flank pain, no jaundice, no blood in the urine, no pain during urination, no vaginal discharge, no blisters on genitals, no rash on genitals, no muscle aches, no headache, urgency, urinary frequency, abdominal pain, feeling of incomplete emptying of bladder Review of Systems:ROS as noted in the HPI Review of Systems Basic Reported By: Patient Physical Exam Adult Basic, Adult Female Complete, 14-21 Yr Females Constitutional: General Appearance: healthy-appearing, well-nourished, well-developed. Level of Distress: NAD. Ambulation: ambulating normally Psychiatric: Mental Status: active and alert, normal affect, normal mood. Orientation: to time, to place, to person Lungs: Respiratory effort: no dyspnea, no tachypnea, no use of accessory muscles, no intercostal retractions. Auscultation: breath sounds normal, clear to auscultation, no wheezing, no rales/crackles, no rhonchi, no retractions Cardiovascular: Heart Auscultation: RRR, no murmurs, no gallops, no rub, normal femoral pulse Abdomen: Bowel Sounds: normal. Inspection and Palpation: soft, non-distended, no tenderness, no guarding, no rebound tenderness, no masses, no CVA tenderness
--- OUTSIDE RECORDS SUMMARY | 2018-06-18 09:22 | XMS REPORT | Encounter Summary ---
Author Organization Unknown Address [address] [place] [address] Phone [phone] Reason for Visit Medical Complaint Instructions 1. Acute maxillary sinusitis doxycycline hyclate 100 mg tablet rapid flu (A+B) Discussion Note: None recorded. Patient educational handouts: No information available. Plan of Care Patient Instructions Ok to use flonase 2 sprays each nostril daily x 7days for sinus pressure. Increase fluid intake. Ok to take ibuprofen or tylenol for fever. If not improve in 3 days, call clinic or see pcp. Reminders Provider Appointments None recorded. Lab Rapid Flu (A+B) 05/29/2018 [facility] Referral None recorded. Procedures None recorded. Surgeries None recorded. Imaging None recorded. Medications Name Start Date doxycycline hyclate 100 mg tablet Take 1 tablet twice a day by oral route after meals for 7 days. Vienva 0.1 mg-20 mcg tablet Medications Administered None recorded. Vitals Height Weight BMI Blood Pressure 5 ft 5 in 146 lbs 24.3 kg/m2 112/76 mm[Hg] Lab Results Date Name Specimen Result Interpretation Description Value Range Status Address Rapid Flu (A+B) Influenza a negative [facility]: [address] [place] [address] Influenza B negative [facility]: [address] [place] [address] Allergies Code Code System Name Reaction Severity Status Onset NKDA Problems No Known Problems Procedures None recorded. Vaccine List Vaccine Type Tdap 11/24/2013 Social History Smoking Status Never Smoker Past Encounters 05/29/2018 Acute Maxillary Sinusitis Brisa Lou, GROCERY CADDY: [address] [facility] , [place] [address], Ph. History of Present Illness Cough Reported By: Patient HPI: Location: nasal/sinus. Quality: productive cough, colored phlegm, congested. Duration: 4 days. Severity: moderate. Onset/Timing: sudden. Context: no foreign travel, non-smoker, sick contact. Modifying factors: OTC medication. Associated Symptoms: no shortness of breath, no wheezing, no sweats, no significant weight gain, no significant weight loss, no morning cough, no sore throat, no vomiting, no diarrhea, no rash, no nausea, no muscle aches, no headache, green sputum, yellow sputum, fever/chills Review of Systems Basic Reported By: Patient Constitutional: Constitutional: fever Eyes: Eyes: no eye complaints Qvyk-Tgvj-Qqngp-Throat: Ears: no ear complaints. Nose: nose/sinus problems. [...] size, round, reactive to light. Sclerae: non-icteric Ilx-Dgst-Nxbhl-Throat: Ears: no lesions on external ear, no [...] tonsils not enlarged Neck: Neck: supple, trachea midline. Lymph Nodes: no cervical LAD. Thyroid: no enlargement, non-tender, no nodules, no asymmetry Lungs: Respiratory effort: no tachypnea. Auscultation: clear to auscultation, no wheezing, no rales/crackles, no rhonchi, no retractions Cardiovascular: Heart Auscultation: no murmurs, no gallops, no rub. Apical impulse: not displaced. Rate and rhythm: regular
--- OUTSIDE RECORDS SUMMARY | 2018-06-18 09:22 | XMS REPORT | Encounter Summary ---
Author Organization Unknown Address [address] [place] [address] Phone [phone] Reason for Visit Medical Complaint Instructions 1. Influenza-like illness rapid strep group A, throat rapid flu (A+B) mononucleosis, heterophile Ab, blood 2. Streptococcal sore throat strep throat: care instructions amoxicillin 875 mg tablet 3. Neck pain neck pain: care instructions 4. On examination - pulse rate tachycardia 5. Mild dehydration oral rehydration: care instructions 6. Fever learning about fever Discussion Note Pt in NAD, understands all information provided Plan of Care Patient Instructions Pt will take abx as prescribed, implement warm salt-water gargles and monitor for fever. Please seek care (PCP, Urgent Care, ER) or return to [facility] if symptoms get worse or do not resolve in 1 week. Reminders Provider Appointments None recorded. Lab Rapid Strep Group a, Throat 04/14/2018 [facility] Rapid Flu (A+B) 04/14/2018 [facility] Mononucleosis, Heterophile Ab, Blood 04/14/2018 [facility] Referral None recorded. Procedures None recorded. Surgeries None recorded. Imaging None recorded. Medications Name Start Date amoxicillin 875 mg tablet Take 1 tablet every 12 hours by oral route for 10 days. Vienva 0.1 mg-20 mcg tablet Medications Administered None recorded. Vitals Height Weight BMI Blood Pressure 5 ft 5 in 145 lbs 24.1 kg/m2 (1) 120/82 mm[Hg] (2) 122/84 mm[Hg] Lab Results Date Name Specimen Result Interpretation Description Value Range Status Address Mononucleosis, Heterophile Ab, Blood Result negative [facility]: [address] [place] [address] Rapid Strep Group a, Throat Result positive [facility]: [address] [place] [address] Swab Location Left and Right tonsillar pillars [facility]: [address] [place] [address] Allergies Code Code System Name Reaction Severity Status Onset NKDA Problems No Known Problems Procedures None recorded. Vaccine List Vaccine Type Tdap 11/24/2013 Social History Smoking Status Never Smoker Past Encounters 04/14/2018 Influenza-like Illness; Streptococcal Sore Throat; Neck Pain; On Examination - Pulse Rate Tachycardia; Mild Dehydration; Fever Marielle Granger, CHIEF [employer] ENGINEER-C: [address] [facility] , [place] [address], Ph. History of Present Illness Throat-Oral Complaint Reported By: Patient HPI: Location: throat. Quality: sore throat. Severity: pain level 9/10. Duration: 1 days. Context: no sick contacts, no foreign travel, non-smoker. Associated Symptoms: no fever, no sputum production, no shortness of breath, no wheezing, no change in number of pillows needed to sleep at night, no sweats, no significant weight gain, no significant weight loss, no morning cough, no vomiting, no diarrhea, no rash, no nausea, fever, headache, body aches, sore throat Review of Systems:ROS as noted in the HPI Review of Systems Basic Reported By: Patient Physical Exam Adult Basic, Adult Female Complete Reported By: Patient Constitutional: General Appearance: healthy-appearing, well-nourished, well-developed. Level of Distress: NAD. Ambulation: ambulating normally Psychiatric: Mental Status: active and alert. Orientation: to time, to place, to person Sgb-Iddf-Ijjln-Throat: Ears: no lesions on external ear, no outer ear tenderness, EACs clear, TMs clear. Hearing: no hearing loss. Nose: no lesions on external nose, nares patent, no septal deviation, nasal passages clear, no sinus tenderness, no nasal discharge. Lips, Teeth, and Gums: no mouth or lip ulcers, no bleeding gums, normal dentition. Oropharynx: erythema, exudates, tonsils enlarged 3+ Neck: Neck: tender. Lymph Nodes: anterior cervical LAD Lungs: Respiratory effort: no dyspnea, no tachypnea, no use of accessory muscles, no intercostal retractions. Auscultation: breath sounds normal Cardiovascular: Heart Auscultation: no murmurs, tachycardia Neurologic: Gait and Station: normal gait, normal station
--- OUTSIDE RECORDS SUMMARY | 2018-06-18 09:23 | XMS REPORT | Summary of Care ---
Author Author BRIJESH HORTON Organization Unknown Address Unknown Phone Unavailable Care Team Providers Care Area Relief Pilot Name Role Phone BRIJESH HORTON Unavailable Unavailable BRIJESH SABA Unavailable Unavailable Unavailable Unavailable Functional Status Name Dates Details Functional status health issues are not documented Status: Name Dates Details Cognitive status health issues are not documented Status: Problems Name Dates Details Acute urinary tract infection (599.0, N39.0) Status: Active Lower back pain (724.2, M54.5) Status: Active Abdominal pain, acute (789.00, R10.9) Status: Active Acute maxillary sinusitis (461.0, J01.00) Status: Active Acute abdominal pain in right upper quadrant (789.01, R10.11) Status: Active Medications Name Dates Details None - No Current Medications * Start : 23-Aug-2007 Active Vienva 0.1-20 MG-MCG Oral Tablet * Refills: 0 Active Ibuprofen 400 MG Oral Tablet TAKE 1 TABLET EVERY 8 HOURS NEEDED. * Quantity: 20 Refills: 0 BRIJESH HORTON * Start : 07-Jun-2018 Active Allergies and Adverse Reactions Name Dates Details No Known Drug Allergies (Allergy) Status: Active Past Medical History Name Dates Details History of Burning with urination (788.1, R30.0) Status: Resolved History of gastroesophageal reflux (GERD) (V12.79, Z87.19) Status: Resolved Procedures Procedure Dates Details Procedures not documented Immunization Name Dates Details Immunizations not documented Family History Name Dates Details No pertinent family history (V49.89, Z78.9) Status: Active Name Dates Details No pertinent family history (V49.89, Z78.9) Status: Active Social History Name Dates Details - Status: Name Dates Details Never smoker Vital Signs Date Test Result Details [id number] BP Systolic 118 mm[Hg] Status: Comments: Location: RUE; Position: Sitting BP Diastolic 78 mm[Hg] Status: Comments: Location: RUE; Position: Sitting Height 65 in Status: Weight 146.375 lb Status: Body Mass Index Calculated 24.36 kg/m2 Status: Body Surface Area Calculated 1.73 m2 Status: Temperature 99.2 f Status: Comments: Method: Oral Heart Rate 74 /min Status: Comments: Location: R Brachial Artery; Respiration Rate 18 /min Status: Comments: Quality: Normal O2 SAT 99 % Status: Comments: Source: RA Results Date Description Value Details [id number] [O] Urine Dipstick (In Office) Glucose NEGATIVE LEUKOCYTES NEGATIVE NITRITE NEGATIVE UROBILINOGEN 0.2 E.U./dL PROTEIN NEGATIVE pH 6.5 URINE BLOOD NEGATIVE SPECIFIC GRAVITY 1.010 KETONES NEGATIVE BILIRUBIN NEGATIVE COLOR URINE YELLOW APPEARANCE CLEAR [id number] US Abdomen complete [id number] Abdomen complete US SEE NOTES Comments: EXAM: US ABDOMEN COMPLETEDATE: 06/07/2018 14:33 CSTINDICATION: - R10.11 Right upper quadrant painADDITIONAL INFORMATION: None.COMPARISON: None.TECHNIQUE: Multiplanar grayscale and color D oppler ultrasound of the abdomen.FINDINGS:Liver:Craniocaudal length: 14.1 cm.Echogenicity: Normal.Surface nodularity: Normal.Mass (size and location): None.Portal vein: 1 cm, normal caliber, with hepatopedal flow.Bile ducts: Common bile duct diameter: 0.2 cm. Intrahepatic ducts: Normal.Gallbladder: Gallstones: None. Gallbladder sludge: None. Gallbladder wall: 0.1 cm. Pericholecystic fluid: None. Sonographic Villalpando sign: Absent.Pancreas: Proximal body partially seen.Spleen: Craniocaudal length: 11.9 cm. Mass or focal lesion (size and location): None.Right kidney:Hydronephrosis: None.Size: 10.5 cm.Echogenicity: Normal.Mass/Stone/Cyst (size and location): None.Left kidney:Hydronephrosis: None.Size: 10.9 cm.Echogenicity: Normal.Mass/Stone/Cyst (size and location): None.Abdominal aorta and IVC: Visible portions are within normal limits in caliber.Ascites: None.IMPRESSION:1. No sonographic evidence of cholelithiasis or cholecystitis.2. No focal hepatic lesions.3. No renal stones or hydronephrosis.--Read by: Javi Galarza MDDictated Date/time: 06/07/18 15:37Electronically Signed by: Javi Galarza MD 06/07/1914:38FINAL REPORT :00 [[facility]] Helicobacter pylori Breath Test H pylori Breath Negative Comments: A negative result does not rule out the possibility of H.pylori infection. Ifclinical signs are suggestive of H. pylori infection, retest with a new sampleor an alternate method.Known causes of false negative results include:1. Use of antimicrobials, proton pump inhibitors and bismuth preparation withinthe 2 weeks preceding the test.2. Administration of the breath test less than 4 weeks after completion oftherapy to eradicate H. pylori.3. Premature or late collection of the post-dose sample.Known causes of false positive results include:1. Patient with achlorhydria.2. Rinsing the Pranactin citric in the mouth allowing contact with ureasepositive bacteria.3. The presence of other gastric spiral organisms such as Helicobacterheilmanii. :00 [[facility]] CBC (INCLUDES DIFF/PLT) WBC 3.8 {K/CMM} Range: 3.7-10.4 RBC 4.40 {M/CMM} Range: 4.20-5.40 Hgb 12.6 g/dl Range: 12.0-16.0 Hct 38.0 % Range: 36.0-48.0 MCV 86.3 fL Range: 80.0-98.0 MCH 28.7 pg Range: 27.0-31.0 MCHC 33.3 g/dl Range: 32.0-36.0 RDW 12.5 % Range: 11.5-14.5 Platelet 288 {K/CMM} Range: 133-450 Mean Platelet Volume 8.6 fL Range: 7.4-10.4 :00 [[facility]] Differential Segmented Neutrophils 48.9 % Range: 45.0-75.0 Monocytes 3.2 % Range: 2.0-12.0 Lymphocytes 44.3 % (Above high threshold) Range: 20.0-40.0 Eosinophils 2.9 % Range: 0.0-4.0 Basophils 0.7 % Range: 0.0-1.0 Segs-Bands # 1.9 {K/CMM} Range: 1.5-8.1 Lymphocytes # 1.7 {K/CMM} Range: 1.0-5.5 Monocytes # 0.1 {K/CMM} Range: 0.0-0.8 Eosinophils # 0.1 {K/CMM} Range: 0.0-0.5 :00 [[facility]] AMYLASE Amylase Level 41 u/l Range: 25-115 :00 [[facility]] CMP W/EGFR Sodium Level 139 {mEq/l} Range: 135-145 Potassium Level 4.0 {mEq/l} Range: 3.5-5.1 Chloride Level 105 {mEq/l} Range: 95-109 Carbon Dioxide 24 {mEq/l} Range: 24-32 AGAP 14.0 {mEq/l} Range: 10.0-20.0 Glucose Lvl 84 mg/dl Range: 70-99 Comments: Adult reference range values reflect the clinical guidelinesof the [employer]. Creatinine Lvl 0.80 mg/dl Range: 0.50-1.40 Blood Urea Nitrogen 8 mg/dl Range: 7-22 BUN/Creatinine Ratio 10 Range: 6-25 Total Protein 7.4 g/dl Range: 6.4-8.4 Albumin Lvl 3.9 g/dl Range: 3.5-5.0 Globulin 3.5 g/dl Range: 2.7-4.2 A/G Ratio 1.1 Range: 0.7-1.6 Calcium Level Total 9.0 mg/dl Range: 8.5-10.5 ALT 19 u/l Range: 0-65 AST 8 u/l Range: 0-37 Alk Phos 68 u/l Range: 39-136 Bili Total 0.7 mg/dl Range: 0.2-1.3 eGFR 104 {ML/MIN/1.7} Comments: The eGFR is calculated using the CKD-EPI formula. In most young, healthyindividuals the eGFR will be >90 mL/min/1.73m2. The eGFR declines with age. AneGFR of 60-89 may be normal in some populations, particularly the elderly, forwhom the CKD-EPI formula has not been extensively validated. Use of the eGFR isnot recommended in the following populations:Individuals with unstable creatinine concentrations, including patients and those with serious co-morbid conditions.Patients with extremes in muscle mass or diet.The data above are obtained from the National Kidney Disease Education Program(NKDEP) which additionally recommends that when the eGFR is used in patientswith extremes of body mass index for purposes of drug dosing, the eGFR shouldbe multiplied by the estimated BMI. [id number]:00 [[facility]] LIPASE Lipase Level 99 u/l Range: 73-393 Plan of Care Name Dates Details Planned Observations Planned Goals not documented Planned Encounters Appointment; BRIJESH NEFF PChata On: 14-Jun-2018 9:20 Instructions Name Dates Details Instructions not documented Encounters Appointment; TD PATEL M.D. Encounter Diagnosis: Problem not documented On: 09-Jul-2017 14:00 Appointment; ARNAUD PATHAK M.D. Encounter Diagnosis: Problem not documented On: 26-Nov-2017 14:45 Appointment; BRIJESH NEFF P.A. Encounter Diagnosis: Problem not documented On: 07-Jun-2018 9:40
== END | disposition home or self-care (01) ==
LOC: OR 14:30
PROVIDERS: ATTEND Internal Medicine Gastroenterology
DX: K29.70 Gastritis, unspecified, without bleeding (principal); K25.9 Gastric ulcer, unspecified as acute or chronic, without hemorrhage or perforation; K20.9 Esophagitis, unspecified; K21.9 Gastro-esophageal reflux disease without esophagitis; Z80.0 Family history of malignant neoplasm of digestive organs
CPT/HCPCS: 43239; 81025; J2001; J2250

== ENCOUNTER → 2020-07-02 | Day surgery (SDC) | payer BC ==
[~2020-07-02] MED LIST changes: -DONNATAL/LIDOCAINE/MAALOX 30 ML SUSP PO ONE; +DOXYCYCLINE HY100 MG PO; -LIDOCAINE HCL 2% LOCAL INJ 5 ML SDV VIAL INJ ONE; -PROPOFOL IV EMULSION 10 MG/ML 50 ML VIAL ONE; +SIMETHICONE 40 MG/0.6 ML BTL ONE
[2020-07-02 16:40] VITALS: BP 102/66
== END | disposition home or self-care (01) ==
LOC: OR 12:22
PROVIDERS: ATTEND Internal Medicine Gastroenterology
DX: K63.89 Other specified diseases of intestine (principal); K60.2 Anal fissure, unspecified; K59.00 Constipation, unspecified; K21.9 Gastro-esophageal reflux disease without esophagitis; F41.9 Anxiety disorder, unspecified
CPT/HCPCS: 45380; 81025; J2250; J3010; 45378